=== PATIENT | female | born 1950 | race Two or more races ===

== ENCOUNTER 2024-02-12 14:00 | Outpatient (CLI) | payer OTHER ==
[~2024-02-12 14:00] MED LIST: VOLTAREN ARTHRI20 GM TOP
== END 2024-02-12 14:17 | disposition home or self-care (01) ==
LOC: MAMO-SONO 14:00
PROVIDERS: ATTEND Internal Medicine
DX: Z12.31 Encounter for screening mammogram for malignant neoplasm of breast (principal)

== ENCOUNTER 2024-07-23 14:10 | Outpatient (CLI) | payer OTHER ==
[~2024-07-23 14:10] MED LIST changes: +DULOXETINE HCL30 MG PO; +MELOXICAM15 MG PO; +METAXALONE800 MG PO
== END 2024-07-23 14:15 | disposition home or self-care (01) ==
LOC: RAD 14:10
PROVIDERS: ATTEND Obstetrics & Gynecology
DX: S39.92XA Unspecified injury of lower back, initial encounter (principal)

== ENCOUNTER → 2024-07-30 10:00 | Outpatient (CLI) | payer OTHER | END | disposition home or self-care (01) | LOC: SONOGRAMA 10:00 | PROVIDERS: ATTEND Obstetrics & Gynecology | DX: N60.22 Fibroadenosis of left breast (principal) ==

== ENCOUNTER 2024-11-08 11:41 | Outpatient (CLI) | payer OTHER | END 2024-11-08 11:47 | disposition home or self-care (01) | LOC: SONOGRAMA 11:41 | PROVIDERS: ATTEND Psychiatry & Neurology Neurology | DX: E03.9 Hypothyroidism, unspecified (principal) ==

== ENCOUNTER 2025-01-01 11:52 | Outpatient (CLI) | payer OTHER | END 2025-01-01 12:10 | disposition home or self-care (01) | LOC: MRI 11:52 | PROVIDERS: ATTEND Physical Medicine & Rehabilitation | DX: S83.281A Other tear of lateral meniscus, current injury, right knee, initial encounter (principal); M17.11 Unilateral primary osteoarthritis, right knee | CPT/HCPCS: 73721 ==

== ENCOUNTER 2025-04-01 12:50 | Outpatient (CLI) | payer OTHER | END 2025-04-01 13:01 | disposition home or self-care (01) | LOC: MRI 12:50 | DX: M54.51 Vertebrogenic low back pain (principal); M54.16 Radiculopathy, lumbar region | CPT/HCPCS: 72148 ==